=== PATIENT | female | born 1965 | race Caucasian/White ===

== ENCOUNTER 2019-09-27 14:55 | Emergency (ER) | payer BC ==
[~2019-09-27] VITALS: Ht 172.7 cm; Wt 84.8 kg
[~2019-09-27 14:55] MED LIST: ATEN25TA PO; LEVO150T PO
[2019-09-27 15:07] VITALS: BP 134/82
--- NOTE | 2019-09-27 15:14 | NUR ---
AT BEDSIDE FOR EVAL.
== END 2019-09-27 15:44 | disposition home or self-care (01) ==
LOC: ER 14:59
DX: S09.8XXA Other specified injuries of head, initial encounter (principal); R51 Headache; E03.9 Hypothyroidism, unspecified; I34.1 Nonrheumatic mitral (valve) prolapse; Z79.899 Other long term (current) drug therapy; V00.218A Other ice-skates accident, initial encounter; Y93.29 Activity, other involving ice and snow; Y92.89 Other specified places as the place of occurrence of the external cause; Y99.8 Other external cause status

== ENCOUNTER 2020-05-09 17:50 | Emergency (ER) | payer BC ==
[~2020-05-09] VITALS: Ht 172.7 cm; Wt 86.2 kg
--- NOTE | 2020-05-09 17:55 | NUR ---
DALIAP PA AT BEDSIDE FOR EVAL.
[2020-05-09] MEDS ORDERED: ONDANSETRON HCL/PF 4 MG/2 ML VIAL ONE (18:15)
[2020-05-09] MEDS ORDERED: MORPHINE SULFATE INJ 4 MG/ML DISP.SYRIN ONE (18:16)
[2020-05-09 18:26] LABS: BASOPHILS # (AUTO) 0.1 /CMM (0.0-0.2); BASOPHILS % (AUTO) 0.5 % (0.0-2.0); EOSINOPHILS % (AUTO) 0.7 % (0.0-6.0); HEMATOCRIT 34 % (33-45); HEMOGLOBIN 11.3 g/dL (11.5-14.8); LYMPHOCYTES % (AUTO) 11.8 % (20.0-44.0); MEAN CORPUSCULAR HGB CONC 33 g/dl (31.0-36.0); MEAN CORPUSCULAR VOLUME 88 fL (82-100); MONOCYTES # (AUTO) 0.6 /CMM (0.1-1.30); MONOCYTES % (AUTO) 3.4 % (2.0-12.0); NEUTROPHILS # (AUTO) 14.1 /CMM (1.8-8.9); NEUTROPHILS % (AUTO) 83.6 % (43.0-81.0); PLATELET COUNT (AUTO) 256 /CMM (150-450); WHITE BLOOD COUNT (AUTO) 16.9 K/uL (4.3-11.0)
[2020-05-09] MEDS ORDERED: MORPHINE SULFATE INJ 2 MG/ML DISP.SYRIN IV ONE (18:30)
[2020-05-09] MEDS ORDERED: ONDANSETRON HCL/PF 4 MG/2 ML VIAL IVP ONE (18:30)
[2020-05-09] MEDS ORDERED: IV NS 0.9% 1,000 ML BAG IV ONE ×2 (18:30→20:00)
[2020-05-09 18:35] LABS: CALCIUM, SERUM 8.8 mg/dL (8.5-10.1); POTASSIUM 3.5 mmol/L (3.5-5.1)
[2020-05-09 18:40] LABS: ALBUMIN 3.7 g/dL (3.4-5.0); BILIRUBIN,DIRECT 0.1 mg/dL (0.0-0.2); BILIRUBIN,TOTAL 0.5 mg/dL (0.2-1.0); TOTAL PROTEIN, SERUM 6.5 g/dL (6.4-8.2)
[2020-05-09] MEDS ORDERED: IOHEXOL-300 100 ML VIAL IV ONE (18:54)
[2020-05-09] MEDS ORDERED: IV NS 0.9% 250 ML IV ONE (18:54)
[2020-05-09 19:01] LABS: APPEARANCE,URINE Clear (CLEAR); BILIRUBIN,URINE SMALL (NEGATIVE); BLOOD, URINE Negative Ery/uL (NEGATIVE); COLOR,URINE Yellow (YELLOW); KETONES,URINE 15 (NEGATIVE); LEUKOCYTE ESTERASE ,URINE Negative (NEGATIVE); NITRITE, URINE Negative (NEGATIVE); PH,URINE 5.5 (5.0-8.0); PROTEIN,URINE Negative (NEGATIVE); UGLUCOSE Negative (NEGATIVE); UROBILINOGEN,URINE 0.2 EU/dL (0.2)
[2020-05-09 19:03] LABS: BACTERIA,URINE None seen /HPF (None Seen); RBC,URINE 0-2 /HPF (0-2); SQUAMOUS EPITHELIAL CELL,UR Few /HPF (None Seen); WBC,URINE 0-2 /HPF (0-3)
--- NOTE | 2020-05-09 19:05 | NUR ---
PT TO RADIOLOGY FOR ABDOMINAL CT SCAN VIA [facility].
--- NOTE | 2020-05-09 19:10 | NUR ---
PT BROUGHT BACK FROM CT. PT YELLING "I AM IN PAIN." PA AT BEDSIDE. PA ORDERED 1MG DILAUDID IV PUSH.
[2020-05-09] MEDS ORDERED: HYDROMORPHONE 1 MG/1 ML DISP.SYRIN ONE (19:13)
--- NOTE | 2020-05-09 19:15 | NUR ---
REPORT GIVEN TO ROSEMARY SOLIS FOR [facility].
--- NOTE | 2020-05-09 19:25 | NUR ---
PT ON MONITOR AND PULSE OX. DENIES PAIN. VSS.
[2020-05-09] MEDS ORDERED: HYDROMORPHONE INJ 0.5 MG/0.5 ML SYRINGE IV ONE (19:30)
[2020-05-09] MEDS ORDERED: PIPERACILLIN /TAZOBACTAM 3.375 G in IV D5W 50 ML IV ONE (20:00)
[2020-05-09] MEDS ORDERED: VANCOMYCIN 1 GM in IV D5W 250 ML IV ONE (20:00)
[2020-05-09] MEDS ORDERED: PIPERACILLIN /TAZOBACTAM 3.375 G VIAL IV ONE (20:08)
[2020-05-09] MEDS ORDERED: VANCOMYCIN 1 GM VIAL ONE (20:16)
--- NOTE | 2020-05-09 21:01 | NUR ---
PT RESTING COMFORTABLY. VSS.
[2020-05-09 22:35] LABS: BASOPHILS # (AUTO) 0.1 /CMM (0.0-0.2); BASOPHILS % (AUTO) 0.3 % (0.0-2.0); HEMATOCRIT 28 % (33-45); HEMOGLOBIN 9.2 g/dL (11.5-14.8); LYMPHOCYTES % (AUTO) 5.4 % (20.0-44.0); MEAN CORPUSCULAR HGB CONC 33 g/dl (31.0-36.0); MEAN CORPUSCULAR VOLUME 89 fL (82-100); MONOCYTES # (AUTO) 0.4 /CMM (0.1-1.30); NEUTROPHILS # (AUTO) 16.9 /CMM (1.8-8.9); NEUTROPHILS % (AUTO) 92.3 % (43.0-81.0); PLATELET COUNT (AUTO) 239 /CMM (150-450); RED BLOOD CELL COUNT(AUTO) 3.17 MIL/uL (4.0-5.2); WHITE BLOOD COUNT (AUTO) 18.3 K/uL (4.3-11.0)
--- NOTE | 2020-05-09 22:51 | NUR ---
PT PROVIDED WITH BLANKETS.VSS. DENIES PAIN.
--- NOTE | 2020-05-09 23:03 | NUR ---
CALLED [facility] FOR [facility] BED. UNABLE TO TRANSFER, ONLY TAKING TONY AND TRAUAMA DUE TO COVID 19
--- NOTE | 2020-05-10 00:15 | NUR ---
CALLED LAB, BLOOD NOT READY.
--- NOTE | 2020-05-10 00:26 | NUR ---
LIZZ FROM [facility] , [place] ROOM [address] [phone] [facility] [phone]
--- NOTE | 2020-05-10 00:33 | NUR ---
[facility] CALLED FOR TRANSPORT. ETA 1 HR 45 MIN
--- NOTE | 2020-05-10 00:50 | NUR ---
blood picked up
--- NOTE | 2020-05-10 00:58 | NUR ---
RN AT BEDSIDE WITH BLOOD
--- NOTE | 2020-05-10 01:00 | NUR ---
blood infusion started
--- NOTE | 2020-05-10 01:50 | NUR ---
[facility]ig[facility] lo[facility]is in [facility] - 05/10/20 at 0154 by SATURNINO REPORT GIVEN TO GIOVANNI SOLIS FOR [facility] AND TRANSPORT.
[2020-05-10 01:51] VITALS: BP 127/74
--- NOTE | 2020-05-10 01:57 | NUR ---
REPORT GIVEN TO GIOVANNI RN AND TRANSPORT. [facility]
== END 2020-05-10 02:06 | disposition short-term general hospital (02) ==
LOC: ER 17:55
DX: K26.6 Chronic or unspecified duodenal ulcer with both hemorrhage and perforation (principal); D64.9 Anemia, unspecified; R11.10 Vomiting, unspecified; E03.9 Hypothyroidism, unspecified; Z79.899 Other long term (current) drug therapy
CPT/HCPCS: 36415; 36430; 74177; 80048; 80076; 81001; 83690; 84703; 85025 ×2; 85730; 86850; 86921; 96361; 96365; 96367; 96375; 99291; J1170; J2270; J2405; J2543 ×2; J3370; J7030 ×2; J7040; J7050; J7060; P9016; Q9967; 81000-TC